=== PATIENT | male | born 1935 ===

== ENCOUNTER 2024-03-18 14:09 | Inpatient (IN) | payer OTHER ==
[2024-03-18 15:46] VITALS: BMI 24.6
[2024-03-18] MEDS ORDERED: DOCUSATE NA/SENNA CONC 1 TAB PO PRN (18:31)
[2024-03-18] MEDS ORDERED: HYDROCODONE/APAP 5/325 MG TAB PO PRN (18:33)
[2024-03-18] MEDS ORDERED: MAGNES/ALUMIN/SIMET 30ML UCUP PO PRN (18:34)
[2024-03-18] MEDS ORDERED: BISACODYL 10 MG RECTAL SUPP PR PRN (18:35)
[2024-03-18] MEDS ORDERED: POLYETHYL GLY 3350 17 GM/DOSE PO PRN (18:42)
[2024-03-18] MEDS ORDERED: FEXOFENADINE 180 MG TAB PO PRN (18:45)
[2024-03-18] MEDS: APIXABAN 2.5 MG TABLET PO SCH (21:24)
[2024-03-18] MEDS: ATORVASTATIN 20 MG TAB PO SCH (21:24)
[2024-03-18] MEDS: DOCUSATE NA 100 MG CAP PO SCH (21:24)
[2024-03-18] MEDS: FAMOTIDINE 20 MG TAB PO SCH (21:24)
[2024-03-19 00:48] LABS: Sqamous Epithelial None Seen /HPF (None Seen); Urine Bacteria None Seen /HPF (<20); Urine Bilirubin NEGATIVE (Negative); Urine Blood Negative (Negative); Urine Clarity Clear (Clear); Urine Color Light-Yellow (Yellow); Urine Culture Reflex Order NOT NEEDED; Urine Glucose NEGATIVE (Negative); Urine Ketones NEGATIVE (Negative); Urine Micro Reflex YN NO BILL MICROSCOPIC; Urine Mucus Slight /HPF (None Seen); Urine Nitrite NEGATIVE (Negative); Urine Protein NEGATIVE (Negative); Urine RBC <5 /HPF (None Seen); Urine Urobilinogen Normal (Normal); Urine pH 6.5 (5.0-7.0)
--- NOTE | 2024-03-19 02:09 | HP ---
Date of Admission: 03/18/2024 Time Of Service: 5:10 p.m. Chief Complaint: "My left knee is hurting and I assisted it and probably needs surgery." History Of Present Illness: Mr. Keys is an 88-year-old patient with gastroesophageal reflux disea se, transaminitis, arthritis, cholecystitis, cholecystectomy, hypertension, dyslipidemia, who was see n at [facility] on 03/17/2024 after a fall resulting in him sustaining his left knee. He had significant pain in the knee and had difficulty ambulating due to the pain. MRI of the left knee identified a complex tear extending to the posterior horn of the medial meniscus and a complex t ear also into the junction with the medial meniscus body and which was displaced peripherally in the medial gutter. He was managed with pain management, oral steroids, and did require some antiemetics. He has stage 3 kidney disease that has been addressed. He has transaminitis and required continuou s monitoring of blood pressure and did have heart rate being low with bradycardia requiring EKG evalu ation and followup management. Prior to his fall, he was completely independent, living alone, [facility] without restrictions. Subsequently, he requires minimum assist for transfers, moderate to max ass ist to ambulate at least 10 feet and also moderate assistance with many activities of daily living. As a result of him functioning well below his baseline, he is referred to inpatient rehabilitation fo r aggressive therapy and to manage his comorbid conditions. Admission to a lower level facility such as [facility] would likely result in the patient worsening and therefore would not be appropria te. Past Medical History: Arthritis, gastroesophageal reflux disease, gallbladder issues, hypertension, dyslipidemia, chronic kidney disease, cholecystectomy, and surgery. Allergies: CODEINE AND MEPERIDINE. Medications: Eliquis 2.5 mg twice daily, Tylenol 650 mg every 4 hours as needed, Senokot-S 2 at nigh t, melatonin 3 mg at bedtime. He is also on antihypertensive medications, which are being entered, m edications for dyslipidemia also being entered, and GE reflux with Protonix. Family History: Noncontributory. Laboratory Studies: White blood cell count 10.2, hemoglobin 16.6, hematocrit 49.9, platelets 200. S odium 136, potassium 4.5, glucose 98, BUN 18, creatinine 1.29, calcium 8.8, albumin 4.0. X-ray/imaging: MRI as noted above. EKG shows bradycardia, kex-MD-gcdudad abnormalities. Also MRI o f the lower extremity without contrast, there was a moderate quadriceps tendinitis and mild patella t endinitis identified. Please note, medications, will have lidocaine patch to the left knee. Current Level Of Functioning: Eating is at setup assistance. Oral hygiene, setup assistance. Moder ate assistance for toilet hygiene, shower, upper body dressing. He is at a contact guard level. Low er body dressing, moderate assistance. Donning and doffing footwear, moderate assistance. For rolli ng left to right, contact guard assistance. For syq-hk-quexw, contact guard assistance; for lying to sitting and going to stand at bed, contact guard assistance. For qgo-gu-fufft, moderate assistance. Ewj-cz-szsfc transfer, moderate assistance. Toilet transfer, moderate assist. Ambulation, moderat e assistance with a rolling walker covering 50 feet. Physical Examination: Vital Signs: Blood pressure 135/58, pulse 66, respiratory rate 18, temperature 97.3, oxygen saturati on 97%. Weight 181 pounds, height 6 feet, BMI 24.7. General: Mr. Keys is sitting in a chair beside bed. EENT: He is normocephalic, atraumatic. Sclerae anicteric. Oropharynx pink and moist. Neck: Supple. Chest: Clear. Heart: Regular. Extremities: No significant edema, cyanosis, or clubbing except in the left knee, slight swelling no desi compared to the right side. He has some giveaway weakness in the left knee due to pain and stock ing-glove loss light touch temperature in the lower extremities and upper extremities. Assessment: Mr. Keys is an 88-year-old patient admitted to the rehabilitation unit with impairmen t category 09, orthopedic. His impairment group code is 08.9, other orthopedic. Etiologic diagnoses , complex tear extending to the posterior horn of the left medial meniscus. His comorbidities are ch ronic kidney disease, decreased mobility, decreased physical functioning, gastroesophageal reflux dis ease, dyslipidemia, hypertension, osteo, arthritis, and transaminitis. Plan: 1.He will have physical therapy for 3 hours a day, 5 of 7 days. 2.We will continue with medication for hypertension, dyslipidemia, osteoarthritis, GE reflux, and fo r managing his pain, for constipation, and for insomnia. Comorbidities That Are Impacting Rehabilitation: At this point, he does have the need for pain manag ement and addressing his kidney function to address his significant again pain in the knee, potential for another fall and injury and to reduce the risk of skin breakdown. Rehab Specific Plan: Mr. Keys will have physical occupational therapy 3 hours a day, 5 of 7 days to improve his ability to transfer from bed to chair to toilet, to perform toileting and showering, t o be able to do all activities of daily living and to ambulate household distances and beyond mobiliz ed wheelchair, household distances, and go up and down 10 steps with bilateral hand rails. Mr. Peacock did present with good understanding of the process of admission to the inpatient rehabilit [facility] facility, how he will benefit from physical and occupational therapy. He will have 24 hours da y [facility], daily physician evaluation and management, and director of social work body shop manager for discharge planning, home equipment and continuing therapy. If need be, he will have additional h elp from the Orthopedic Service, Infectious Disease Service, Cardiology Service, and Pulmonary Servic e. Barriers To Discharge: Currently, he does live alone and has to get to the point where he can be noni se to modified independent or independent to go home. He does have a neighbor who is available to he lp, but he would likely if he is unable to do very well have to go to a [facility] facility, but he is to go to skilled home. Length Of Stay: About 10 days. Disposition: Home with continued therapy via Home Health. Prognosis: Good. Rehab Specific Goals: 1.To become independent with upper and body dressing, donning and doffing footwear. 2.Inability to perform all activities of daily living. 3.Independent transfer from a bed to a chair to toilet to shower and perform those toileting and codey wering. 4.Independently ambulate 250 feet with a rolling walker. 5.Independently propel a wheelchair 250 feet. 6.Independently to go up and down 10 steps with bilateral handrails. 7.Independently perform all cognitive functioning including medication management, physician followu p and to have a safety awareness as a top priority. The above goals were reviewed with Mr. Keys and he is in agreement. By signing this document, I acknowledge I personally performed a full physical examination on Mr. Wal drep no later than 24 hours after his admission to the inpatient rehabilitation facility and determin ed that he is able to tolerate the above course of treatment at an intensive level for reasonable per iod of time. A detailed individualized plan of care for him will be completed by hospital day 4 base d on the preadmission screen history and physical and therapy evaluations. BRENT Voice ID: [id number]
[2024-03-19 03:55] LABS: Absolute Lymphocytes (CBC) 1.9 K/uL (0.7-4.9); Absolute Monocytes 0.7 K/uL (0.1-1.3); Absolute Neutrophil 7.5 K/uL (1.8-8.0); Basophils % 0.2 % (0-1.3); Eosinophils % 0.3 % (0-4.4); Hematocrit 45.1 % (39.6-49.0); Hemoglobin 15.2 g/dL (13.6-17.9); Lymphocytes % 18.5 % (15.3-44.8); MCH 31.7 pg (27.0-35.0); MCHC 33.6 g/dL (32.0-36.0); MCV 94.3 fL (80-100); MPV 10.8 fL (7.6-11.3); Monocytes % 6.5 % (3.3-12.3); Neutrophils % 74.5 % (41.7-73.7); Platelets 189 thou/uL (152-406); RBC Red Blood Cell Count 4.79 M/uL (4.33-5.43); Red Cell Distribution Width 14.8 % (12.1-15.2)
[2024-03-19 04:30] LABS: Albumin 3.1 g/dL (3.4-5.0); Magnesium 2.2 mg/dL (1.6-2.4); Prealbumin 15.3 mg/dL (20-40)
[2024-03-19] MEDS: FLUTICASONE 50MCG NASAL SPRAY NAS SCH (07:40)
[2024-03-19] MEDS: DOCOSAHEXANOIC AC/EPA 1000 MG PO SCH (07:41)
[2024-03-19] MEDS: ASPIRIN EC 81 MG TAB PO SCH (07:41)
[2024-03-19] MEDS: PANTOPRAZOLE 40MG TABLET PO SCH (07:41)
[2024-03-19] MEDS: lisinopriL 20 MG TAB PO SCH (07:41)
[2024-03-19] MEDS: predniSONE 10 MG TAB PO SCH (07:41)
[2024-03-19] MEDS: FUROSEMIDE 20 MG TABLET PO SCH (07:42)
[2024-03-19] MEDS: [UNRECOGNIZED DRUG - OTHER] PO SCH (07:43)
[2024-03-19] MEDS ORDERED: FUROSEMIDE 20 MG/ 2ML VIAL IV SCH (08:00)
[2024-03-19] MEDS: LIDOCAINE 4% PATCH TOP SCH (11:43)
[2024-03-19] MEDS ORDERED: MELATONIN 3 MG TABLET PO PRN (12:56)
--- NOTE | 2024-03-21 23:46 | PN ---
Date of Progress Note: 03/21/2024 Time Of Service: 1:15 p.m. Subjective: Mr. Keys is resting comfortably in his room, does say that the left knee is causing s ome pain as he mobilizes, that is where there is a ligament tear. He does have a pain patch on board and that is actually helping. He has no additional complaints. Sleeping well, eating well, good rene wel movements, and no other issues. Objective: No fevers, chills, nausea, vomiting. No myalgias. There is arthralgias in the left knee more than right. Otherwise, no other positives on systems review. Physical Examination: Vital Signs: Blood pressure 126/64, pulse 55, respiratory rate of 16, temperature 97.3, oxygen satur ation 96%. Weight 189 pounds, height 6 feet, BMI 25.8. General: Mr. Keys is resting comfortably in a chair between therapy sessions. HEENT: He is normocephalic, atraumatic. Sclerae anicteric. Oropharynx pink and moist. Neck: Supple. Chest: Clear. Extremities: He has mild edema in the left knee. Otherwise, no focal deficits. Stocking-glove loss to light touch and temperature. Laboratory Studies: White blood cell count 10.1, platelets 189, hemoglobin 15.2. Sodium 137, potass ium 4.0, chloride 106, carbon dioxide 27, BUN 24, creatinine 1.24, glucose 129, calcium 8.6, magnesiu m 2.2, albumin 3.1, prealbumin 15.3. Urinalysis shows 75 esterase, but is otherwise normal. X-ray/imaging: No new x-rays or imaging. Medications: Extra-strength Tylenol 500 mg every 6 hours as needed, [place] 5/325 every 6 hours as nee ded, simethicone 30 mg every 6 hours as needed, Eliquis 2.5 mg twice daily, aspirin 81 mg daily, Lipi tor 20 mg at bedtime, Colace 100 mg twice daily, Pepcid 20 mg twice daily, Marilyn 180 mg daily, omeg a-3 fish oil 1000 mg daily, Flonase 50 mcg 2 sprays nasally daily, Lasix 40 mg daily, lidocaine patch apply topically daily that is a 4% patch, Prinivil 20 mg daily, melatonin 300 mg at bedtime, Robaxin 500 mg every 12 hours as needed, Protonix 40 mg daily, prednisone 10 mg daily, Senokot-S 2 at bedtim e. Progress Made With Physical And Occupational Therapy: Today with physical therapy, complete gait tra ining 750 feet twice with contact guard assistance. He did have some decreased twisting of the knee during mobilization. With occupational therapy, supervision for shower transfer, bathing supervision , supervision for upper body dressing and footwear, did complete 5 sets of 4 lsc-ky-grriz transfers w ith a rolling walker. He was evaluated by Speech, is independent with memory, comprehension, express ion, intelligibility. He scored 15 on the BIMS test and 28 on the SLUMS test. Does have very mild d ifficulty if any with memory and executive functioning, it is noted to be adequate. Speech therapy d etermined not to be needed and he has no swallowing issues. Mr. Keys is making excellent progress with his recovery so far. His pain is managed. He does hav e need for some more control especially with mobilization, but is not limiting him from doing therapy . Assessment: Mr. Keys is an 88-year-old patient in the rehabilitation unit with complex tear exten ding to the posterior horn of the left medial meniscus. He has chronic kidney disease, decreased mob ility, decreased physical functioning, gastroesophageal reflux, dyslipidemia, hypertension, osteoarth ritis, and transaminitis. Plan: Continue with physical and occupational therapy for 3 hours a day, 5 of 7 days. His comorbid conditions are listed above and medications are continued. He has DVT prophylaxis, pain management i ncluding patches and different modalities, medication treatment for GE reflux. His issue of hydratio n is addressed and he is working on actually plans to continue therapy after discharge. Comorbidities That Are Impacting Rehabilitation: At this point, his comorbidities are very stably ma naged and do not negatively impact his rehabilitation. LB/MODL Voice ID: [id number] Report ID: [id number]
[2024-03-22] MEDS: ACETAMINOPHEN 500 MG TAB PO PRN (08:49)
--- NOTE | 2024-03-23 01:08 | PN ---
Date of Progress Note: 03/22/2024 Time Of Service: 01:20 p.m. Subjective: Mr. Keys is resting in his bed, doing well. He says the left knee pain is better. Paloma charles actually did not have a pain patch on as it was removed as he has changed his pants and another is being reapplied. He is doing well with sleep, eating. No other issues such as bowel movements or bl adder issues. Objective: No fevers, chills, nausea, vomiting, mild myalgias in the left lower extremity. Mild art hralgias of the left knee. Otherwise, negative on systems review. Physical Examination: Vital Signs: Blood pressure 103/67, pulse 68, respiratory rate 19, temperature 97.7, oxygen saturati on 95%. Mr. Keys is resting in bed in between therapy sessions. HEENT: He is normocephalic, atraumatic. Sclerae anicteric. Oropharynx pink and moist. Neck: Supple. Chest: Clear and there are just mild arthritic type changes noted from the external evaluation of th e right knee. No fluid is appreciated. No joint laxity noted. Laboratory Studies: No new laboratory studies. X-ray/imaging: No new x-rays or imaging. Medications: Medications have been reviewed and are unchanged. Progress Made With Physical, Occupational, And Speech Therapy: Today, he was able to do multiple sup ine-to-sit transfers independently, perform zyn-dd-trnwu transfer standby assistance. He ambulated 6 00 feet, 900 feet, and 125 feet with standby assistance using a rolling walker. He was able to go up and down 15 steps with bilateral handrails with standby assistance. With occupational therapy, self propelled a wheelchair 250 feet with rest breaks, supervision for toilet hygiene. Mr. Keys is making excellent progress with his physical, occupational therapy. He will be ready f or discharge later this week. Assessment And Plan: Mr. Keys is an 88-year-old patient admitted to rehabilitation unit with comp lesia tears in the left medial meniscus and posterior horn as well. He has kidney disease, decreased m obility, decreased physical functioning, hypertension, dyslipidemia, osteoarthritis. Plan: He will continue physical and occupational therapy 3 hours a day, 5 of 7 days. Continue with all his comorbid condition medications which include DVT prophylaxis, for pain in the left knee, for GE reflux. Address his issues of hydration, anemia, and malnutrition. Comorbidities That Are Impacting Rehabilitation: His pain is managed in the knee and not negatively impacting rehabilitation. Comorbidities are otherwise stable. LB/MODL Voice ID: [id number] Report ID: [id number]
[2024-03-24] MEDS: methocarbamoL 500 MG TAB PO PRN (00:15)
[2024-03-24 06:42] LABS: Anion Gap 10.9 mEq/L (5.0-15.0); Potassium 3.9 mEq/L (3.5-5.1)
[2024-03-24 07:11] LABS: Absolute Basophils 0.1 K/uL (0-0.5); Absolute Monocytes 1.4 K/uL (0.1-1.3); Absolute Neutrophil 12.3 K/uL (1.8-8.0); Basophils % 0.4 % (0-1.3); Eosinophils % 0.2 % (0-4.4); Hematocrit 45.8 % (39.6-49.0); Hemoglobin 15.6 g/dL (13.6-17.9); MCH 31.9 pg (27.0-35.0); MCV 93.9 fL (80-100); MPV 10.3 fL (7.6-11.3); Monocytes % 9.3 % (3.3-12.3); Neutrophils % 83.1 % (41.7-73.7); Platelets 203 thou/uL (152-406); RBC Red Blood Cell Count 4.88 M/uL (4.33-5.43); Red Cell Distribution Width 14.9 % (12.1-15.2)
--- NOTE | 2024-03-24 09:36 | RAD REPORT ---
EXAM DESCRIPTION: Bharat Single View03/24/2024 9:09 am CLINICAL HISTORY: Chest pain COMPARISON: none FINDINGS: Elevation left hemidiaphragm. The lungs appear clear of acute infiltrate. The heart is normal size
[2024-03-24] MEDS: NA CHLORIDE 0.9% 1,000 ML IV SCH (16:43)
--- NOTE | 2024-03-24 17:11 | RAD REPORT ---
EXAM DESCRIPTION: RAD - Knee Left 2 View - 03/24/2024 2:49 pm CLINICAL HISTORY: INCREASE IN PAIN COMPARISON: No comparisons TECHNIQUE: Left knee, 2 views. FINDINGS: No fracture, dislocation or periosteal reaction.Suspected small joint effusion seen. Mild degenerate changes with mild joint space narrowing along the medial weight-bearing compartment. Bipar tite patella. No soft tissue abnormality. Clinical concerns for internal derangement or occult bony injury could be further assessed with MR im aging. IMPRESSION: No acute abnormality. Mild degenerative changes. Bipartite patella.
--- NOTE | 2024-03-25 01:32 | PN ---
Date of Progress Note: 03/24/2024 Time Of Service: 01:20 p.m. Subjective: Mr. Keys is doing very well. Denies any significant pain, just says it is mild pain when he ambulates and that is in the left knee. Otherwise, no new complaints on subjective or object aries. No fevers, chills, although his white count did go up. He denies any fevers or chills currentl y. He did say last night he actually felt very cold and required multiple blankets, but not this mor gilson or today. Physical Examination: Vital Signs: Blood pressure 137/78, pulse 68, respiratory rate 18, temperature 97.6, O2 saturation 9 2%. Weight 189 pounds, height 6 feet, BMI 25.6. General: Mr. Keys is resting comfortably in bed. HEENT: He is normocephalic, atraumatic. Sclerae anicteric. Oropharynx is moist. Neck: Supple. Chest: Clear. Heart: Regular. EXTREMITIES: Mild edema in the left knee. Otherwise, no significant findings there. Laboratory Studies: White blood cell count 14.8, increased from 10.1 on the first ; neutro phils went up from 74.5 to 83.1; otherwise all blood parameters are unremarkable including hemoglobin , hematocrit, platelets. His sodium is slightly low at 133; potassium 3.9; chloride 101; carbon diox radha 25; BUN did increase from 24 to 41; creatinine increased from 1.34 to 1.78. He is receiving some IV fluids. His procalcitonin is very elevated to 6.05, which does suggest a systemic inflammatory r esponse. His lactic acid, however, is normal of 1.2. Calcium normal at 9.0. His blood cultures are pending showed no abnormalities so far and blood cultures were done x2. He did have a chest x-ray t kale that showed no evidence of pneumonia. The study did show some mild elevation of the left hemidi aphragm. There was a knee x-ray and that is of the left knee. The study showed mild degeneration, b ipartite patella, and no acute abnormalities. There was a small joint effusion. Medications: Medications have been reviewed and are unchanged except the Prinivil is 20 mg daily and prednisone was cut back from 10 mg daily to 5 mg daily as it is possibly associated with his elevate d white blood cell count. He is on Protonix as well. Progress Made With Physical And Occupational Therapy: Today with physical therapy, completed bed mob ility independently, multiple transfers bed to chair to toilet independently. Car transfer was indep endent. He ambulated 100 feet x2 with supervision with occupational therapy, ambulated from room to shower without assistive device and contact guard assistance independently, did shower transfer. Mr. Keys has done excellent with physical and occupational therapy, has no limitations in terms of how well he is doing with his recovery of left knee. No significant abnormalities. Does have sligh tly elevated white blood cell count. Assessment And Plan: Again, Mr. Keys is an 88-year-old patient in the rehabilitation unit with a complex tear of the left knee ligaments. He has made excellent progress, recovering well with his ph ysical, occupational therapy. He has chronic kidney disease, decreased mobility, decreased physical function, hypertension, dyslipidemia, osteoarthritis, elevated white blood cell count, likely related to steroid use. His procalcitonin is elevated and that is potentially related to chronic infection potentially related to his knee. Plan: 1.He will continue physical and occupational therapy 3 hours a day, 5/7 days. 2.Repeat blood work in the morning. 3.His steroid has been cut back from 10 mg to 5 mg daily. His GE reflux medication on board. We wi ll have the patient follow up after discharge with a repeat white blood cell count depending on the r esults tomorrow. Blood cultures were drawn, they will be followed as well, and we will instruct the following up physicians to evaluate the results of his blood work. Comorbidities That Are Impacting Rehabilitation: Again slightly elevated white blood cell count, but may not necessarily be an infection but related to use of prednisone. LISA/MODL Voice ID: [id number] Report ID: [id number]
[2024-03-25] MEDS: FUROSEMIDE 20 MG TABLET PO SCH (07:41)
[2024-03-25] MEDS: lisinopriL 20 MG TAB PO SCH (07:42)
[2024-03-25] MEDS: predniSONE 10 MG TAB PO SCH (07:42)
[2024-03-25 07:46] VITALS: BP 127/67
[2024-03-25 07:51] LABS: Absolute Basophils 0.1 K/uL (0-0.5); Absolute Eosinophils 0.3 K/uL (0-0.5); Absolute Lymphocytes (CBC) 1.6 K/uL (0.7-4.9); Absolute Monocytes 1.1 K/uL (0.1-1.3); Absolute Neutrophil 5.5 K/uL (1.8-8.0); Eosinophils % 3.8 % (0-4.4); Hematocrit 46.1 % (39.6-49.0); Hemoglobin 15.6 g/dL (13.6-17.9); Lymphocytes % 18.8 % (15.3-44.8); MCH 32.1 pg (27.0-35.0); MCHC 33.9 g/dL (32.0-36.0); MCV 94.6 fL (80-100); MPV 9.9 fL (7.6-11.3); Monocytes % 12.9 % (3.3-12.3); Neutrophils % 63.5 % (41.7-73.7); Platelets 218 thou/uL (152-406); RBC Red Blood Cell Count 4.87 M/uL (4.33-5.43); Red Cell Distribution Width 15.3 % (12.1-15.2)
[2024-03-25 08:09] LABS: Anion Gap 7.1 mEq/L (5.0-15.0); Potassium 4.1 mEq/L (3.5-5.1)
[2024-03-25 08:21] VITALS: TEMP 97.2
--- NOTE | 2024-03-25 13:49 | P.RH.PN ---
Estimated Length of Stay: 9 Expected Discharge Date: 03/25/24 Discharge Disposition Plan: Home Family Support: Yes Eeler Goal: Mobility, Transfers, Self Care Vital Signs: Last Vital Signs Temp 97.2 F 03/25/24 08:00 Pulse 62 03/25/24 08:00 Resp 18 03/25/24 08:00 BP 127/67 03/25/24 08:00 Pulse Ox 95 03/25/24 08:00 Laboratory: Laboratory Last Values WBC 8.60 thou/uL (4.3-10.9) 03/25/24 07:25 RBC 4.87 M/uL (4.33-5.43) 03/25/24 07:25 Hgb 15.6 g/dL (13.6-17.9) 03/25/24 07:25 Hct 46.1 % (39.6-49.0) 03/25/24 07:25 MCV 94.6 fL (80-100) 03/25/24 07:25 MCH 32.1 pg (27.0-35.0) 03/25/24 07:25 MCHC 33.9 g/dL (32.0-36.0) 03/25/24 07:25 RDW 15.3 % (12.1-15.2) H 03/25/24 07:25 Plt Count 218 thou/uL (152-406) 03/25/24 07:25 MPV 9.9 fL (7.6-11.3) 03/25/24 07:25 Neutrophils % 63.5 % (41.7-73.7) 03/25/24 07:25 Lymphocytes % 18.8 % (15.3-44.8) 03/25/24 07:25 Monocytes % 12.9 % (3.3-12.3) H 03/25/24 07:25 Eosinophils % 3.8 % (0-4.4) 03/25/24 07:25 Basophils % 1.0 % (0-1.3) 03/25/24 07:25 Absolute Neutrophils 5.5 K/uL (1.8-8.0) 03/25/24 07:25 Absolute Lymphocytes 1.6 K/uL (0.7-4.9) 03/25/24 07:25 Absolute Monocytes 1.1 K/uL (0.1-1.3) 03/25/24 07:25 Absolute Eosinophils 0.3 K/uL (0-0.5) 03/25/24 07:25 Absolute Basophils 0.1 K/uL (0-0.5) 03/25/24 07:25 Sodium 133 mEq/L (136-145) L 03/25/24 07:25 Potassium 4.1 mEq/L (3.5-5.1) 03/25/24 07:25 Chloride 103 mEq/L (98-107) 03/25/24 07:25 Carbon Dioxide 27 mEq/L (21-32) 03/25/24 07:25 Anion Gap 7.1 mEq/L (5.0-15.0) 03/25/24 07:25 BUN 38 mg/dL (7-18) H 03/25/24 07:25 Creatinine 1.54 mg/dL (0.70-1.30) H 03/25/24 07:25 Est GFR (CKD-EPI) 43 ml/min (=/>90) L 03/25/24 07:25 Glucose 92 mg/dL (74-106) 03/25/24 07:25 POC Glucose 105 mg/dL (65-120) 03/23/24 23:42 Lactic Acid 1.2 mmol/L (0.4-2.0) 03/24/24 08:49 Calcium 8.8 mg/dL (8.5-10.1) 03/25/24 07:25 Magnesium 2.2 mg/dL (1.6-2.4) 03/19/24 03:20 Albumin 3.1 g/dL (3.4-5.0) L 03/19/24 03:20 Prealbumin 15.3 mg/dL (20-40) L 03/19/24 03:20 Procalcitonin 6.05 ng/mL (<0.050) H 03/24/24 08:49 Urine Color Light-yellow (Yellow) 03/19/24 00:30 Urine Clarity Clear (Clear) 03/19/24 00:30 Urine pH 6.5 (5.0-7.0) 03/19/24 00:30 Ur Specific [place] 1.010 (1.005-1.030) 03/19/24 00:30 Glucose (UA)(Auto) Negative (Negative) 03/19/24 00:30 Urine Ketones Negative (Negative) 03/19/24 00:30 Urine Blood Negative (Negative) 03/19/24 00:30 Urine Nitrite Negative (Negative) 03/19/24 00:30 Urine Bilirubin Negative (Negative) 03/19/24 00:30 Urine Urobilinogen Normal (Normal) 03/19/24 00:30 Ur Leukocyte Esterase 75 Phyllis/uL (Negative) H 03/19/24 00:30 Urine RBC <5 /HPF (None Seen) 03/19/24 00:30 Urine WBC 5-10 /HPF (<5) 03/19/24 00:30 Ur Squamous Epith Cells None seen /HPF (None Seen) 03/19/24 00:30 Urine Bacteria None seen /HPF (<20) 03/19/24 00:30 Urine Mucus Slight /HPF (None Seen) 03/19/24 00:30 Urine Culture Reflexed Not needed 03/19/24 00:30 Urine Total Protein Negative (Negative) 03/19/24 00:30 Weight: 189 lb Wound Present: No Closed Surgical Incision Present: No Negative Pressure Wound Therapy Present: No Physician Update: Labs reviewed and are stable. He made very good progress with all therapy. He will discharge home today with home health. Moderately poor hearing. Summary: Patient's care plan and intermediate designer goals have been reviewed and revised as necessary. Please see the Rehabilitation Signature page for all necessary signatures.
== END 2024-03-25 15:05 | disposition home health service (06) | DRG 950 ==
LOC: 5TH 15:20
PROVIDERS: ADMIT Psychiatry & Neurology Neurology with Special Qualifications in Child Neurology; ATTEND Psychiatry & Neurology Neurology with Special Qualifications in Child Neurology
DX: S83.232D Complex tear of medial meniscus, current injury, left knee, subsequent encounter (principal); K21.9 Gastro-esophageal reflux disease without esophagitis; M19.90 Unspecified osteoarthritis, unspecified site; E78.5 Hyperlipidemia, unspecified; I12.9 Hypertensive chronic kidney disease with stage 1 through stage 4 chronic kidney disease, or unspecified chronic kidney disease; N18.30 Chronic kidney disease, stage 3 unspecified
CPT/HCPCS: 31720; 36415; 71045; 80048; 81001; 82040; 82947; 83605; 83735; 84134; 84145; 85025; 87040; 87086; 87088; 92523; 94010; 97110; 97112; 97116; 97124; 97161; 97165; 97530; 97542; J2001; J7030; J7512